=== PATIENT | male | born 1985 | race African-American/Black ===

== ENCOUNTER 2024-07-31 10:39 | Emergency (ER) | payer SELFPAY ==
[~2024-07-31] VITALS: Ht 177.8 cm; Wt 75.0 kg
[2024-07-31 10:45] VITALS: O2SAT 100
[2024-07-31 11:20] LABS: CHLORIDE 104 mEq/L (98-107); POTASSIUM 3.8 mEq/L (3.5-5.1); SODIUM 141 mEq/L (136-145)
[2024-07-31 11:21] LABS: CARBON DIOXIDE 30 mEq/L (21-32)
[2024-07-31 11:26] LABS: CREATININE 1.3 mg/dL (0.6-1.3); GLUCOSE 118 mg/dL (70-105)
[2024-07-31 11:27] LABS: UREA NITROGEN BLOOD 14 mg/dL (9-23)
[2024-07-31 11:37] LABS: BASOPHILS % 0.7 % (0.0-2.0); EOSINOPHILS % 2.8 % (0.0-5.0); HEMATOCRIT. 43.7 % (42.0-52.0); LYMPHOCYTES % 50.2 % (20.0-50.0); MEAN CORPUSCULAR HEMOGLOBIN 26.9 pg (28.0-32.0); MEAN CORPUSCULAR HGB CONC 32.1 g/dL (31.0-37.0); MEAN CORPUSCULAR VOLUME 83.7 fL (80.0-94.0); MEAN PLATELET VOLUME 8.5 fl (7.4-10.4); MONOCYTES % 7.9 % (2.0-8.0); NEUTROPHILS % 38.4 % (40.0-76.0); PLATELET 178 x1000/uL (130-400); RED BLOOD CELL COUNT 5.22 mill/uL (4.7-6.1); RED CELL DISTRIBUTION WIDTH 14.2 % (11.6-14.6); WHITE BLOOD COUNT 4.6 x1000/uL (4.5-11.0)
[2024-07-31 11:57] LABS: ALANINE AMINOTRANSFERASE 159 IU/L (10-49); ALBUMIN 4.2 g/dL (3.2-4.8); ASPARTATE AMINOTRANSFERASE 86 IU/L (<34); BILIRUBIN DIRECT 0.5 mg/dL (<=3.0); BILIRUBIN TOTAL 1.7 mg/dL (0.1-1.0); PROTEIN TOTAL 7.4 g/dL (6.0-8.3)
[2024-07-31 13:00] LABS: CLARITY URINE CLEAR (CLEAR); COLOR URINE YELLOW (YELLOW); GLUCOSE URINE NEGATIVE (NEGATIVE); KETONES URINE TRACE (NEGATIVE); LEUKOCYTE ESTERASE URINE NEGATIVE (NEGATIVE); NITRITE URINE NEGATIVE (NEGATIVE); OCCULT BLOOD URINE NEGATIVE (NEGATIVE); PROTEIN URINE NEGATIVE (NEGATIVE); SPECIFIC GRAVITY URINE 1.022 (1.005-1.030)
[2024-07-31 14:40] VITALS: BP 140/75; PULSE 72; RESP 14; TEMP 36.9; O2SAT 100
== END 2024-07-31 14:49 | disposition home or self-care (01) ==
LOC: ER 10:39
DX: T14.8XXA Other injury of unspecified body region, initial encounter (principal); R07.81 Pleurodynia; X58.XXXA Exposure to other specified factors, initial encounter; Y93.89 Activity, other specified; Y92.89 Other specified places as the place of occurrence of the external cause; Y99.8 Other external cause status
CPT/HCPCS: 36415; 71045; 76705; 80048; 80076; 81003; 85025; 99284